=== PATIENT | female | born 1980 | race Caucasian/White ===

== ENCOUNTER 2021-04-20 19:32 | Emergency (ER) | payer BC, SELFPAY ==
[2021-04-20 19:43] VITALS: BP 156/90; PULSE 74; RESP 14; TEMP 36.7; O2SAT 100
--- NOTE | 2021-04-20 19:44 | ED.GENADULT ---
HPI - General Adult General Chief complaint: Unspecified Stated complaint: High BP Time Seen by Provider: 04/20/21 19:44 Source: patient Related Data Home Medications Medication Instructions Recorded Confirmed amoxicillin 500 mg PO Q12H 04/20/21 04/20/21 cetirizine [Zyrtec] 10 mg PO DAILY 04/20/21 04/20/21 fluticasone propionate [Flonase] 2 spray INTRANASAL DAILY 04/20/21 04/20/21 methylprednisolone [Medrol (Matthew)] 0 mg PO PER PKG DIR 04/20/21 04/20/21 Allergies Allergy/AdvReac Type Severity Reaction Status Date / Time No Known Allergies Allergy Verified 04/20/21 19:54 Review of Systems Review of Systems: CONSTITUTIONAL: Denies fever, chills, or sweats. EYES: Denies visual changes, redness, or discharge. ENT: Denies rhinorrhea, congestion, sore throat, or otalgia. CARDIOVASCULAR: Denies chest pain, palpitations, or edema. RESPIRATORY: Denies cough or dyspnea. GASTROINTESTINAL: Denies abdominal pain, nausea, vomiting, or diarrhea. GENITOURINARY: Denies dysuria or hematuria. SKIN: Denies rash or itching. MUSCULOSKELETAL: Denies back pain, joint pain, or myalgia. NEUROLOGIC: Denies headache, numbness, or weakness. PSYCHIATRIC: Denies anxiety or depression. PMFSH Comments At time of signature, agree with nursing past medical, surgical, social and family history. There is no relevant family history pertinent to the presenting complaint Exam Narrative: GENERAL: Well-appearing, well-nourished, and in no acute distress. HEAD: Normocephalic, atraumatic. EYES: PERRLA and EOMI. ENT: Nares clear, no rhinorrhea or epistaxis. Mucous membranes moist. NECK: Supple. CHEST: Clear to auscultation. No respiratory distress. HEART: Regular rate and rhythm. No murmur heard. Normal peripheral pulses. ABDOMEN: Soft, nontender, nondistended, normal active bowel sounds. EXTREMITIES: Normal range of motion. No edema. SKIN: Warm, dry, no rash. NEURO: No focal deficits. Alert and oriented x3. Joice Coma Scale Eye Opening: Spontaneous 4 Julianne Coma Scale Motor: Obeys Commands 6 Joice Coma Scale Verbal: Oriented 5 Joice Coma Scale Total 15 Course Vital Signs Vital signs: Vital Signs Temperature 36.7 C 04/20/21 19:43 Pulse Rate 74 04/20/21 19:43 Respiratory Rate 14 04/20/21 19:43 Blood Pressure 156/90 H 04/20/21 19:43 Pulse Oximetry 100 04/20/21 19:43 Temperature 36.7 C 04/20/21 19:43 Pulse Rate 74 04/20/21 19:43 Respiratory Rate 14 04/20/21 19:43 Blood Pressure 156/90 H 04/20/21 19:43 Pulse Oximetry 100 04/20/21 19:43 Please MIYA schedule a followup visit with your personal physician for further evaluation and treatment. Including recheck and discussion of your blood pressure. If your symptoms persist, change or worsen significantly before you can contact your personal physician then please, without delay, go to the emergency department for further evaluation Addressed elevated BP today. Today's blood pressure higher than recommended range. Discussed importance of follow -up with PCP and possible head sawyer automatic effects/cardiovascular events related to HTN. Currently patient denies headache, dizziness, vision changes, CP or shortness of breath. Critical dx considered and discussed with pt. Educated patient on red flag s/s and to go to ED if s/s occur. Discussed with pt when to return to [facility] or primary care provider. Pt gave verbal undertstanding, all questions were answered, and pt was agreeable to plan Medical Decision Making Differential Diagnosis Differential Diagnosis: Elevated blood pressure reading, hypertension Vital Signs Vital Signs: Vital Signs Temperature 36.7 C 04/20/21 19:43 Pulse Rate 74 04/20/21 19:43 Respiratory Rate 14 04/20/21 19:43 Blood Pressure 156/90 H 04/20/21 19:43 Pulse Oximetry 100 04/20/21 19:43 Temperature 36.7 C 04/20/21 19:43 Pulse Rate 74 04/20/21 19:43 Respiratory Rate 14 04/20/21 19:43 Blood Pressure 156/90 H 04/20/21 19
== END 2021-04-20 20:02 | disposition home or self-care (01) ==
PROVIDERS: Emergency Provider Nurse Practitioner Family
DX: Z03.89 Encounter for observation for other suspected diseases and conditions ruled out (principal)
CPT/HCPCS: 99211; G0463